=== PATIENT | female | born 1980 | race Caucasian/White ===

== ENCOUNTER 2025-05-20 09:37 | Emergency (ER) | payer OTHER ==
[~2025-05-20] VITALS: Ht 149.9 cm; Wt 50.3 kg
[2025-05-20] MEDS ORDERED: ONDA4TAB5 PO (10:03)
[2025-05-20] MEDS ORDERED: IBUP-1955 PO (10:03)
[2025-05-20] MEDS ORDERED: dexaMETHasone SOD PHOSPHATE 1 ML ONE (10:19)
[2025-05-20] MEDS ORDERED: ACETAMINOPHEN ES 500 MG TABLET ONE (10:20)
[2025-05-20] MEDS ORDERED: METOCLOPRAMIDE HCL 10 MG/2 ML VIAL ONE (10:20)
[2025-05-20] MEDS: ACETAMINOPHEN ES 500 MG TABLET PO ONE (10:33)
[2025-05-20] MEDS: dexaMETHasone SOD PHOSPHATE 10 MG/ML VIAL IV ONE (10:33)
[2025-05-20] MEDS: METOCLOPRAMIDE HCL 10 MG/2 ML VIAL IV ONE (10:33)
[2025-05-20] MEDS: IV NS 0.9% 1,000 ML BAG IV ONE (10:34)
[2025-05-20 11:40] VITALS: BP 117/84; TEMP 97.9; O2SAT 97
== END 2025-05-20 11:42 | disposition home or self-care (01) ==
LOC: ER 09:49
DX: R51.9 Headache, unspecified (principal); R11.2 Nausea with vomiting, unspecified; R53.83 Other fatigue; I10 Essential (primary) hypertension
CPT/HCPCS: 99284; 96374; 96375; 96361; J1100; J1200; J2765; J7030